=== PATIENT | male | born 1970 ===

== ENCOUNTER 2016-06-04 12:29 | Inpatient (IN) | payer OTHER ==
[2016-06-04 12:37] VITALS: BMI 25.8
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
[2016-06-04 13:59] LABS: ADD MANUAL DIFF? NO
[2016-06-04 14:10] LABS: BASO # 0.06 K/mm3 (0.0-2.0); BASO % 0.8 % (0.0-3.0); EOS # 0.2 (0.0-0.7); EOS % 2.4 % (1.5-5.0); GRAN # 4.07 (1.4-6.5); GRAN % 55.1 % (50.0-68.0); HEMATOCRIT 38.9 % (42.0-52.0); LYMPH # 2.3 (1.2-3.4); LYMPH % 30.7 % (22.0-35.0); MEAN CELL VOLUME 86.6 fL (80.0-105.0); MEAN CORPUSCULAR HEMOGLOBIN 28.5 pg (25.0-35.0); MEAN CORPUSCULAR HGB CONC 32.9 g/dl (31.0-37.0); MEAN PLATELET VOLUME 11.5 fl (7.0-11.0); MONO # 0.8 (0.1-0.6); PLATELET COUNT 299 10^3/uL (120.0-450.0); RED CELL DISTRIBUTION WIDTH 14.7 % (11.5-14.5); WHITE BLOOD COUNT 7.4 10^3/ul (4.5-11.0)
[2016-06-04 14:19] LABS: ALB/GLOB RATIO 1.1 (1.1-1.8); ALKALINE PHOSPHATASE 161 U/L (38-133); ALT/SGPT 30 U/L (7-56); AST/SGOT 28 U/L (15-59); BILIRUBIN,TOTAL 0.5 mg/dL (0.2-1.3); BLOOD UREA NITROGEN 9 mg/dL (7-21); CALCIUM 8.7 mg/dL (8.4-10.5); CARBON DIOXIDE 29 mmol/L (21-33); CHLORIDE 102 mmol/L (98-107); CHOLESTEROL 147 mg/dL (130-200); GFR AFRICAN-AMERICAN > 60; GLUCOSE,RANDOM 78 mg/dL (70-110); POTASSIUM 3.5 mmol/L (3.6-5.0); SODIUM 140 mmol/L (132-148); TOTAL PROTEIN 7.6 g/dL (5.8-8.3)
[2016-06-04 14:20] LABS: INR 1.02 (0.93-1.08); PARTIAL THROMBOPLASTIN TIME 30.1 Seconds (23.7-30.8)
[2016-06-04 14:31] LABS: TROPONIN I < 0.01 ng/mL
--- NOTE | 2016-06-04 14:42 | CT ---
PROCEDURE: CT HEAD WITHOUT CONTRAST. HISTORY: left sided weakness, facial droop COMPARISON: 03/29/2015 TECHNIQUE: Axial computed tomography images were obtained through the head/brain without intravenous contrast. Radiation dose: Total exam DLP = 688 mGy-cm. This CT exam was performed using one or more of the following dose reduction techniques: Automated exposure control, adjustment of the mA and/or kV according to patient size, and/or use of iterative reconstruction technique. FINDINGS: HEMORRHAGE: There is an 11 mm acute hemorrhage in the right basal ganglia adjacent to the posterior limb of the internal capsule. There is minimal surrounding edema. BRAIN: No mass effect or edema. No atrophy or chronic microvascular ischemic changes. VENTRICLES: Unremarkable. No hydrocephalus. CALVARIUM: Unremarkable. PARANASAL SINUSES: Unremarkable as visualized. No significant inflammatory changes. MASTOID AIR CELLS: Unremarkable as visualized. No inflammatory changes. OTHER FINDINGS: The findings were discussed with Dr. Interiano at 2:40 p.m. IMPRESSION: There is an 11 mm acute hemorrhage in the right basal ganglia adjacent to the posterior limb of the internal capsule. There is minimal surrounding edema.
--- NOTE | 2016-06-04 14:52 | RAD ---
HISTORY: cva COMPARISON: 03/29/2015 FINDINGS: LUNGS: No active pulmonary disease. PLEURA: No significant pleural effusion identified, no pneumothorax apparent. CARDIOVASCULAR: Normal. OSSEOUS STRUCTURES: No significant abnormalities. VISUALIZED UPPER ABDOMEN: Normal. OTHER FINDINGS: None. IMPRESSION: No active disease.
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
[2016-06-04] MEDS ORDERED: Labetalol 5 mg/ml Inj 20ML IV STA ×2 (16:44→16:53)
[2016-06-04] MEDS ORDERED: Labetalol 5 mg/ml Inj 20ML ONE (16:46)
--- NOTE | 2016-06-04 17:19 | MRI ---
PROCEDURE: MRI BRAIN WITHOUT CONTRAST HISTORY: brain hemorrhage COMPARISON: Comparison is made to the previous CT study dated 03/29/2015 and 06/04/2016 TECHNIQUE: Multiplanar, multisequence MR images of the brain were obtained without intravenous contrast enhancement. FINDINGS: HEMORRHAGE: There is focal hemorrhage versus hemorrhagic lesion at the right basal ganglia adjacent to the posterior element of the internal capsule again seen measures 15 x 14 millimeter. These focal hemorrhagic demonstrate hypointense T2 and Iso to slightly hyperintense T1 signal suggestive of acute/early subacute hemorrhage. The differential diagnosis includes hemorrhagic lesion. DWI: No evidence of an acute or early subacute infarction. BRAIN PARENCHYMA: Cmet-lw-hoiubawb edema surrounding the focal hemorrhage at the right basal ganglia noted. No evidence of significant mass effect. No atrophy or chronic microvascular ischemic changes. VENTRICLES: Unremarkable. No hydrocephalus. CRANIUM: Unremarkable. ORBITS: Grossly unremarkable. PARANASAL SINUSES/MASTOIDS: Clear VASCULAR SYSTEM: Skull base flow voids intact. OTHER FINDINGS: None. IMPRESSION: Acute/ early subacute intraparenchymal hemorrhage versus hemorrhagic lesion seen at the right basal ganglia surrounding with fjqu-yj-nrzflxrs edema. No evidence of other acute pathology or other hemorrhagic lesion in the brain. Follow-up reassessment after 4 weeks with MRI is suggested.
--- NOTE | 2016-06-04 17:34 | CON ---
DATE: 06/04/2016 HISTORY OF PRESENT ILLNESS: This is a 45-year-old male with past medical history of hyperte nsion who came to the Emergency Room with left-sided weakness, left facial droop and some dysarthria . 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 Yesterday became a littl e bit more weak and called to evaluate the patient. CAT scan of the head was done. CAT scan showed 11 mm acute hemorrhage in the right basal ganglia adjacent to the posterior limb of the internal caps ule. PAST MEDICAL HISTORY: Hypertension. SOCIAL HISTORY: Lives with and children. Does not drink and smokes 1 pack per day for many, man y years. REVIEW OF SYSTEMS: A 10-point review of system was negative except for numbness of the left hand and weakness. PHYSICAL EXAMINATION: HEENT: Normocephalic, atraumatic. NECK: Supple. NEUROLOGIC: Alert, awake, oriented x 3. No aphasia. Cranial nerves II-XII were tested. Pupils lexi ctive. EOM intact. Motor examination: Moves all the extremities spontaneously. Deep tendon reflex es 1+. Both plantars are downgoing. Sensory appears intact. Cerebellar: Gait deferred. VITAL SIGNS: Blood pressure 165/114. IMPRESSION: Right basal ganglia bleed and hypertension uncontrolled and workup in progress. We will follow. Neurosurgery consult was called and ordered the MRI of the head. We will follow up. Cy Terrazas MD cc: [id number] TT: 06/04/2016 17:34:07 Confirmation # [id number] Dictation # [id number] ln
--- NOTE | 2016-06-04 17:46 | CARD ---
APPROVED REPORT EKG Measurement Heart [id number] <Conclusion> Normal sinus rhythm with sinus arrhythmia Moderate voltage criteria for LVH, may be normal variant Borderline ECG
--- NOTE | 2016-06-04 18:42 | MRI ---
PROCEDURE: Magnetic Resonance Angiography Brain HISTORY: brain hemorrhage COMPARISON: None available. TECHNIQUE: 3D time of flight MR angiography of the intracranial arteries was performed. Rotating maximum intensity projection images were generated. FINDINGS: INTERNAL CEREBRAL ARTERIES: Unremarkable. The skull base, petrous, cavernous and supraclinoid segments are bilaterally widely patient. ANTERIOR CEREBRAL ARTERIES: Unremarkable. A1 and A2 segments are widely patent. Smaller distal branches unremarkable, as visualized. MIDDLE CEREBRAL ARTERIES: Unremarkable. M1 and M2 segments are widely patent. Perisylvian branches grossly symmetric. POSTERIOR CIRCULATION: Basilar Artery: Unremarkable. Distal Vertebral Arteries: Unremarkable. Posterior Cerebral Arteries: Unremarkable. Posterior Inferior Cerebellar Arteries: Unremarkable. ANEURYSM/ VASCULAR MALFORMATIONS: None. OTHER FINDINGS: None. IMPRESSION: Unremarkable MR angiography of the brain.
[2016-06-04] MEDS ORDERED: Oxycodone/Acetaminophen 10/325 mg Tab PO PRN (18:45)
[2016-06-04] MEDS ORDERED: Labetalol 5 mg/ml Inj 20ML IV PRN (18:47)
[2016-06-04] MEDS ORDERED: Pneumococcal 23-Valent Vaccine IM ONE (23:32)
[2016-06-05 06:17] LABS: ADD MANUAL DIFF? NO
[2016-06-05 06:27] LABS: BASO # 0.09 K/mm3 (0.0-2.0); BASO % 1.3 % (0.0-3.0); EOS # 0.2 (0.0-0.7); EOS % 3.3 % (1.5-5.0); GRAN # 3.35 (1.4-6.5); GRAN % 47.4 % (50.0-68.0); HEMATOCRIT 38.7 % (42.0-52.0); LYMPH # 2.6 (1.2-3.4); LYMPH % 36.7 % (22.0-35.0); MEAN CORPUSCULAR HEMOGLOBIN 28.4 pg (25.0-35.0); MEAN CORPUSCULAR HGB CONC 33.1 g/dl (31.0-37.0); MEAN PLATELET VOLUME 11.3 fl (7.0-11.0); MONO # 0.8 (0.1-0.6); MONO % 11.3 % (1.0-6.0); PLATELET COUNT 307 10^3/uL (120.0-450.0); RED CELL DISTRIBUTION WIDTH 14.9 % (11.5-14.5); WHITE BLOOD COUNT 7.1 10^3/ul (4.5-11.0)
[2016-06-05 06:39] LABS: BLOOD UREA NITROGEN 8 mg/dL (7-21); CALCIUM 8.1 mg/dL (8.4-10.5); CARBON DIOXIDE 28 mmol/L (21-33); CHLORIDE 105 mmol/L (98-107); GFR AFRICAN-AMERICAN > 60; GLUCOSE,RANDOM 110 mg/dL (70-110); POTASSIUM 3.2 mmol/L (3.6-5.0); SODIUM 141 mmol/L (132-148)
[2016-06-05] MEDS ORDERED: Potassium Chloride 20 mEq ER Tab PO STA (07:32)
--- NOTE | 2016-06-05 13:46 | CP.CCUPN ---
<Sree Jeffries - Last Filed: 06/05/16 13:51> CCU Subjective - Physician Review Subjective (Free Text): Pt seen and examined at bedside. No acute events overnight. Pt states he has no new complaints at this time. Pt admits to having mild numbness in his left head , but the rest of his symptoms from previous day have resolved. Pt is tolerating diet with no complications. Pt is having BM's. Denies CP, SOB, N/V/D , fevers, chills. CCU Objective - Vital Signs / Intake & Output Vital Signs (Last 4 hours): Vital Signs Temp Pulse Resp BP Pulse Ox 06/05/16 12:55 60 14 96 06/05/16 12:04 50 H 06/05/16 12:03 138/85 06/05/16 12:00 98.7 F 06/05/16 11:56 63 06/05/16 11:55 63 20 139/87 96 06/05/16 11:00 58 L 15 119/70 96 06/05/16 10:00 61 14 122/83 95 Intake and Output (Last 8hrs): Intake & Output 06/04/16 06/05/16 06/05/16 22:59 06:59 14:59 Intake Total 360 Output Total 300 900 Balance 60 -900 Weight 170 lb Intake: Oral 360 Output: Urine 300 900 Urine, Voided 300 900 Other: Voiding Method Urinal Urinal Urinal # Voids Urine, Voided 3 # Bowel Movements 0 - Physical Exam Head: Positive for: Atraumatic, Normocephalic Pupils: Positive for: PERRL Extroacular Muscles: Positive for: EOMI Conjunctiva: Positive for: Normal Mouth: Positive for: Moist Mucous Membranes Neck: Positive for: Normal Range of Motion Respiratory/Chest: Positive for: Clear to Auscultation, Good Air Exchange. Negative for: Respiratory Distress, Accessory Muscle Use, Wheezes Cardiovascular: Positive for: Regular Rate and Rhythm, Normal S1, S2, Peripheal Pulses Present. Negative for: Murmurs Abdomen: Positive for: Normal Bowel Sounds. Negative for: Tenderness, Distention, Peritoneal Signs Back: Positive for: Normal Inspection Upper Extremity: Positive for: Normal Inspection, NORMAL PULSES. Negative for: Cyanosis, Edema Lower Extremity: Positive for: Normal Inspection, NORMAL PULSES. Negative for: Edema Neurological: Positive for: GCS=15, Speech Normal, Normal Sensory Function, Memory Normal, Other (upper extremity strength 5/5 bilaterally) Skin: Positive for: Warm, Dry, Normal Color. Negative for: Rashes Psychiatric: Positive for: Alert, Oriented x 3, Normal Insight, Normal Concentration - Medications Active Medications: Active Medications Generic Name Dose Route Start Last Admin Trade Name Freq PRN Reason Stop Dose Admin Clonidine HCl 0.1 mg 06/05/16 10:00 06/05/16 09:01 Catapres PO 0.1 mg TID ELMIRA Administration Labetalol HCl 10 mg 06/04/16 18:47 Trandate IV Q1 PRN SBP>180 Metoprolol Tartrate 100 mg 06/04/16 18:45 06/05/16 09:00 Lopressor PO 100 mg BID ELMIRA Administration Oxycodone/Acetaminophen 1 tab 06/04/16 18:45 06/05/16 03:22 Percocet 10/325 Mg Tab PO 1 tab Q4H PRN Administration Pain, moderate (4-7) Pantoprazole Sodium 40 mg 06/05/16 10:00 06/05/16 09:01 Protonix Inj IVP 40 mg DAILY EL[place]IRA Administration - Patient Studies Lab Studies: Lab Studies 06/05/16 06/05/16 06/04/16 Range/Units 07:27 05:45 22:03 WBC 7.1 (4.5-11.0) 10^3/ul RBC 4.50 (3.5-6.1) 10^6/uL Hgb 12.8 L (14.0-18.0) gm/dL Hct 38.7 L (42.0-52.0) % MCV 86.0 (80.0-105.0) fL MCH 28.4 (25.0-35.0) pg MCHC 33.1 (31.0-37.0) g/dl RDW 14.9 H (11.5-14.5) % Plt Count 307 (120.0-450.0) 10^3/uL MPV 11.3 H (7.0-11.0) fl Gran % 47.4 L (50.0-68.0) % Lymph % (Auto) 36.7 H (22.0-35.0) % Garrard % (Auto) 11.3 H (1.0-6.0) % Eos % (Auto) 3.3 (1.5-5.0) % Baso % (Auto) 1.3 (0.0-3.0) % Gran # 3.35 (1.4-6.5) Lymph # 2.6 (1.2-3.4) Garrard # 0.8 H (0.1-0.6) Eos # 0.2 (0.0-0.7) Baso # 0.09 (0.0-2.0) K/mm3 Sodium 141 (132-148) mmol/L Potassium 3.2 L (3.6-5.0) mmol/L Chloride 105 (98-107) mmol/L Carbon Dioxide 28 (21-33) mmol/L Anion Gap 11 (10-20) BUN 8 (7-21) mg/dL Creatinine 1.1 (0.5-1.4) mg/dL Est GFR ( Amer) > 60 Est GFR (Non-Af Amer) > 60 POC Glucose (mg/dL) 113 H 132 H (65-110) mg/dL Random Glucose 110 (70-110) mg/dL Calcium 8.1 L (8.4-10.5) mg/dL 06/04/16 Range/Units 18:31 WBC (4.5-11.0) 10^3/ul RBC (3.5-6.1) 10^6/uL Hgb (14.0-18.0) gm/dL Hct (42.0-52.0) % MCV (80.0-105.0) fL MCH (25.0-35.0) pg MCHC (31.0-37.0) g/dl RDW (11.5-14.5) % Plt Count (120.0-450.0) 10^3/uL MPV (7.0-11.0) fl Gran % (50.0-68.0) % Lymph % (Auto) (22.0-35.0) % Garrard % (Auto) (1.0-6.0) % Eos % (Auto) (1.5-5.0) % Baso % (Auto) (0.0-3.0) % Gran # (1.4-6.5) Lymph # (1.2-3.4) Garrard # (0.1-0.6) Eos # (0.0-0.7) Baso # (0.0-2.0) K/mm3 Sodium (132-148) mmol/L Potassium (3.6-5.0) mmol/L Chloride (98-107) mmol/L Carbon Dioxide (21-33) mmol/L Anion Gap (10-20) BUN (7-21) mg/dL Creatinine (0.5-1.4) mg/dL Est GFR ( Amer) Est GFR (Non-Af Amer) POC Glucose (mg/dL) 93 (65-110) mg/dL Random Glucose (70-110) mg/dL Calcium (8.4-10.5) mg/dL Laboratory Results - last 24 hr 06/04/16 06/04/16 06/05/16 18:31 22:03 05:45 WBC 7.1 RBC 4.50 Hgb 12.8 L Hct 38.7 L MCV 86.0 MCH 28.4 MCHC 33.1 RDW 14.9 H Plt Count 307 MPV 11.3 H Gran % 47.4 L Lymph % (Auto) 36.7 H Garrard % (Auto) 11.3 H Eos % (Auto) 3.3 Baso % (Auto) 1.3 Gran # 3.35 Lymph # 2.6 Garrard # 0.8 H Eos # 0.2 Baso # 0.09 Sodium 141 Potassium 3.2 L Chloride 105 Carbon Dioxide 28 Anion Gap 11 BUN 8 Creatinine 1.1 Est GFR ( Amer) > 60 Est GFR (Non-Af Amer) > 60 POC Glucose (mg/dL) 93 132 H Random Glucose 110 Calcium 8.1 L 06/05/16 07:27 WBC RBC Hgb Hct MCV MCH MCHC RDW Plt Count MPV Gran % Lymph % (Auto) Garrard % (Auto) Eos % (Auto) Baso % (Auto) Gran # Lymph # Garrard # Eos # Baso # Sodium Potassium Chloride Carbon Dioxide Anion Gap BUN Creatinine Est GFR ( Amer) Est GFR (Non-Af Amer) POC Glucose (mg/dL) 113 H Random Glucose Calcium Fingerstick Blood Sugar Results: 87 Critical Care Progress Note - Nutrition Nutrition: Nutrition Category Date Time Status Heart Healthy Diet [DIET] Diets 06/04/16 Dinner Ordered Assessment/Plan - Assessment and Plan (Free Text) Plan: 45 y/ M with PMH of HTN presents with intracranial hemorrhage in the right basal ganglia. Pt is stable today and will undergo repeat head CT and CT angiography of the brain to further assess hemorrhage. Will continue to monitor. Pt may be transferred out to medical floors is bleed is unchanged. Neuro AAOx3 No surgery intervention as per neurosurgery Repeat Head CT today Brain MRI should be repeated in [address] Head with angiography ordered Neurochecks q1h, may change pending repeat scan results Cardio Goal SBP <160 Labetalol, clonidine, and metoprolol for BP control Maintain hemodynamic instability MAP >65 Pulm Maintain O2 sat> 95% Monitor for distress GI Heart Healthy diet Protonix for prophylaxis Endo Maintain eugylcemia Nephro Maintain euvolemia Replenish electrolytes as needed Heme Aferile, no leukocytosis Prophylaxis scds due to intracranial hemorrhaged. protonix Seen, reviewed, and discussed with attending Nesha, PGY-1 <Sally KATE,Berta H - Last Filed: 06/05/16 14:47> CCU Objective - Vital Signs / Intake & Output Vital Signs (Last 4 hours): Vital Signs Temp Pulse Resp BP Pulse Ox 06/05/16 13:56 65 103/64 06/05/16 12:55 60 14 96 06/05/16 12:04 50 H 06/05/16 12:03 138/85 06/05/16 12:00 98.7 F 06/05/16 11:56 63 06/05/16 11:55 63 20 139/87 96 06/05/16 11:00 58 L 15 119/70 96 Intake and Output (Last 8hrs): Intake & Output 06/04/16 06/05/16 06/05/16 22:59 06:59 14:59 Intake Total 360 Output Total 300 900 Balance 60 -900 Weight 170 lb Intake: Oral 360 Output: Urine 300 900 Urine, Voided 300 900 Other: Voiding Method Urinal Urinal Urinal # Voids Urine, Voided 3 # Bowel Movements 0 - Medications Active Medications: Active Medications Generic Name Dose Route Start Last Admin Trade Name Freq PRN Reason Stop Dose Admin Clonidine HCl 0.1 mg 06/05/16 10:00 06/05/16 13:56 Catapres PO 0.1 mg TID ELMIRA Administration Labetalol HCl 10 mg 06/04/16 18:47 Trandate IV Q1 PRN SBP>180 Metoprolol Tartrate 100 mg 06/04/16 18:45 06/05/16 09:00 Lopressor PO 100 mg BID [place] Administration Oxycodone/Acetaminophen 1 tab 06/04/16 18:45 06/05/16 03:22 Percocet 10/325 Mg Tab PO 1 tab Q4H PRN Administration Pain, moderate (4-7) Pantoprazole Sodium 40 mg 06/05/16 10:00 06/05/16 09:01 Protonix Inj IVP 40 mg DAILY [place] Administration - Patient Studies Lab Studies: Lab Studies 06/05/16 06/05/16 06/04/16 Range/Units 07:27 05:45 22:03 WBC 7.1 (4.5-11.0) 10^3/ul RBC 4.50 (3.5-6.1) 10^6/uL Hgb 12.8 L (14.0-18.0) gm/dL Hct 38.7 L (42.0-52.0) % MCV 86.0 (80.0-105.0) fL MCH 28.4 (25.0-35.0) pg MCHC 33.1 (31.0-37.0) g/dl RDW 14.9 H (11.5-14.5) % Plt Count 307 (120.0-450.0) 10^3/uL MPV 11.3 H (7.0-11.0) fl Gran % 47.4 L (50.0-68.0) % Lymph % (Auto) 36.7 H (22.0-35.0) % Garrard % (Auto) 11.3 H (1.0-6.0) % Eos % (Auto) 3.3 (1.5-5.0) % Baso % (Auto) 1.3 (0.0-3.0) % Gran # 3.35 (1.4-6.5) Lymph # 2.6 (1.2-3.4) Garrard # 0.8 H (0.1-0.6) Eos # 0.2 (0.0-0.7) Baso # 0.09 (0.0-2.0) K/mm3 Sodium 141 (132-148) mmol/L Potassium 3.2 L (3.6-5.0) mmol/L Chloride 105 (98-107) mmol/L Carbon Dioxide 28 (21-33) mmol/L Anion Gap 11 (10-20) BUN 8 (7-21) mg/dL Creatinine 1.1 (0.5-1.4) mg/dL Est GFR ( Amer) > 60 Est GFR (Non-Af Amer) > 60 POC Glucose (mg/dL) 113 H 132 H (65-110) mg/dL Random Glucose 110 (70-110) mg/dL Calcium 8.1 L (8.4-10.5) mg/dL 06/04/16 Range/Units 18:31 WBC (4.5-11.0) 10^3/ul RBC (3.5-6.1) 10^6/uL Hgb (14.0-18.0) gm/dL Hct (42.0-52.0) % MCV (80.0-105.0) fL MCH (25.0-35.0) pg MCHC (31.0-37.0) g/dl RDW (11.5-14.5) % Plt Count (120.0-450.0) 10^3/uL MPV (7.0-11.0) fl Gran % (50.0-68.0) % Lymph % (Auto) (22.0-35.0) % Garrard % (Auto) (1.0-6.0) % Eos % (Auto) (1.5-5.0) % Baso % (Auto) (0.0-3.0) % Gran # (1.4-6.5) Lymph # (1.2-3.4) Garrard # (0.1-0.6) Eos # (0.0-0.7) Baso # (0.0-2.0) K/mm3 Sodium (132-148) mmol/L Potassium (3.6-5.0) mmol/L Chloride (98-107) mmol/L Carbon Dioxide (21-33) mmol/L Anion Gap (10-20) BUN (7-21) mg/dL Creatinine (0.5-1.4) mg/dL Est GFR ( Amer) Est GFR (Non-Af Amer) POC Glucose (mg/dL) 93 (65-110) mg/dL Random Glucose (70-110) mg/dL Calcium (8.4-10.5) mg/dL Laboratory Results - last 24 hr 06/04/16 06/04/16 06/05/16 18:31 22:03 05:45 WBC 7.1 RBC 4.50 Hgb 12.8 L Hct 38.7 L MCV 86.0 MCH 28.4 MCHC 33.1 RDW 14.9 H Plt Count 307 MPV 11.3 H Gran % 47.4 L Lymph % (Auto) 36.7 H Garrard % (Auto) 11.3 H Eos % (Auto) 3.3 Baso % (Auto) 1.3 Gran # 3.35 Lymph # 2.6 Garrard # 0.8 H Eos # 0.2 Baso # 0.09 Sodium 141 Potassium 3.2 L Chloride 105 Carbon Dioxide 28 Anion Gap 11 BUN 8 Creatinine 1.1 Est GFR ( Amer) > 60 Est GFR (Non-Af Amer) > 60 POC Glucose (mg/dL) 93 132 H Random Glucose 110 Calcium 8.1 L 06/05/16 07:27 WBC RBC Hgb Hct MCV MCH MCHC RDW Plt Count MPV Gran % Lymph % (Auto) Garrard % (Auto) Eos % (Auto) Baso % (Auto) Gran # Lymph # Garrard # Eos # Baso # Sodium Potassium Chloride Carbon Dioxide Anion Gap BUN Creatinine Est GFR ( Amer) Est GFR (Non-Af Amer) POC Glucose (mg/dL) 113 H Random Glucose Calcium Critical Care Progress Note - Nutrition Nutrition: Nutrition Category Date Time Status Heart Healthy Diet [DIET] Diets 06/04/16 Dinner Ordered Attending/Attestation - Attestation I have personally seen and examined this patient.: Yes I have fully participated in the care of the patient.: Yes I have reviewed all pertinent clinical information: Yes Notes (Text): 06/05/16 14:46 45 y/o M w/ ICH IC/ Basal ganglia NSG aware no intervention planned. No new acute neurological events overnight BP control w/ labetalol PRN for SBP> 18. Can start P.O medications. Diet resumed and advanced. PT/OT needed. Neurology follow up and need for repeat Head CT. SCD dvt p cc time 45 min
[2016-06-05] MEDS ORDERED: Iodixanol 320 MG/ML 100 ML BOTTLE IV ONE (14:07)
--- NOTE | 2016-06-05 15:28 | CT ---
PROCEDURE: CT HEAD WITHOUT CONTRAST. HISTORY: compare bleed size COMPARISON: 06/04/2016 TECHNIQUE: Axial computed tomography images were obtained through the head/brain without intravenous contrast. Radiation dose: Total exam DLP = 744.88 mGy-cm. This CT exam was performed using one or more of the following dose reduction techniques: Automated exposure control, adjustment of the mA and/or kV according to patient size, and/or use of iterative reconstruction technique. FINDINGS: HEMORRHAGE: Since the prior examination, there has been no significant interval change in the known 11 x 13 mm acute hematoma in the right posterior basal ganglia. There is mild surrounding vasogenic edema without evidence of mass effect or midline shift. BRAIN: There is no intracranial mass or extra-axial fluid collection. There is normal density in the larger dural venous sinuses. VENTRICLES: The ventricles are normal in size, shape and configuration. CALVARIUM: The skull base and calvarium are normal. There is an old deformity in the right lamina papyracea. PARANASAL SINUSES: Predominantly clear. MASTOID AIR CELLS: Predominantly clear. OTHER FINDINGS: None. IMPRESSION: Little interval change in the known 11 x 13 mm right posterior basal ganglia acute hematoma with mild surrounding vasogenic edema. The location of the hematoma is in favor of hypertensive etiology.
--- NOTE | 2016-06-05 15:50 | CT ---
PROCEDURE: CT Angiography of the Brain. HISTORY: Right basal ganglia hemorrhage COMPARISON: None available. TECHNIQUE: CT angiography of the intracranial arteries was performed. Coronal and sagittal maximum intensity projection reformated images were generated. This CT exam was performed using one or more of the following dose reduction techniques: Automated exposure control, adjustment of the mA and/or kV according to patient size, and/or use of iterative reconstruction technique. FINDINGS: INTERNAL CEREBRAL ARTERIES: Normal in caliber. The skull base, petrous, cavernous and supraclinoid segments are bilaterally widely patient. ANTERIOR CEREBRAL ARTERIES: Normal in caliber. A1 and A2 segments are widely patent. Smaller distal branches unremarkable, as visualized. MIDDLE CEREBRAL ARTERIES: Normal in caliber e. M1 and M2 segments are widely patent. Perisylvian branches grossly symmetric. POSTERIOR CIRCULATION: Basilar Artery: Normal Distal Vertebral Arteries: Normal Posterior Cerebral Arteries: Normal Posterior Inferior Cerebellar Arteries: Normal ANEURYSM/ VASCULAR MALFORMATIONS: None. OTHER FINDINGS: None. IMPRESSION: Normal CT Angiography of the Brain.
[2016-06-06] MEDS: Pantoprazole 40 mg EC Tab PO SCH (08:00)
[2016-06-06 10:17] LABS: BLOOD UREA NITROGEN 13 mg/dL (7-21); CALCIUM 8.7 mg/dL (8.4-10.5); CARBON DIOXIDE 28 mmol/L (21-33); CHLORIDE 104 mmol/L (95-110); GFR AFRICAN-AMERICAN > 60; GLUCOSE,RANDOM 91 mg/dL (70-110); MAGNESIUM 2.1 mg/dL (1.7-2.2); POTASSIUM 3.8 mmol/L (3.6-5.0); SODIUM 142 mmol/L (132-148)
--- NOTE | 2016-06-06 22:22 | PN ---
DATE: 06/06/2016 The patient was seen this Thursday morning in coronary care unit bed 4, sitting out of bed in a chair, awake, alert, clear, and in good spirits. His speech is clear and fluent. He is moving his upper ex tremities rather well. Hand grasp is good, slightly weaker on the left. Arm strength and hand rotat ion and arm drift is almost near normal, showing only very mild neurologic deficit. The patient has been ambulatory in the room and feels good on his feet. PHYSICAL EXAMINATION: LUNGS: Clear. HEART: Regular, not tachycardic. VITAL SIGNS: Blood pressure is rather well controlled on his current medication regimen. IMPRESSION: 1. Acute hemorrhagic stroke while lifting weights at the local gym. 2. Hypertension. 3. Chronic back pain. PLAN: We will transfer out of ICU today. Engage in physical therapy. Ambulate on the floor and fur ther plans regarding rehabilitation to be determined based on his progress and extent of his neurolog ic deficit if any. Leland Herrera MD cc: [phone] TT: 06/06/2016 22:21:33 Confirmation # [id number] Dictation # [id number] kailey
--- NOTE | 2016-06-06 23:17 | PN ---
DATE: 06/05/2016 This is a 45-year-old man seen and admitted by Dr. Anup Herrera yesterday when he presented to the Em ergency Room with 2 or 3 days of worsening neurologic symptoms, onset while weightlifting at a local gym and progressing to the point of weakness and unable to walk, at which point he knew something was wrong and he and he needed to come in. CT from the Emergency Room showed a hemorrhagic infarct. He was admitted to ICU. Neurology and neurosurgery consultations were called. There is no need for deepali gical intervention, needs to be treated conservatively and has been doing amazingly well. Today, this evening, he is seen in coronary care unit bed 4, sitting in bed, comfortable, awake, alert, in no acute distress. His speech is clear and normal. There is some left hand weakness, although h and . Rotation of the hand is good and there is minimal appreciated arm drift. I spoke with the patient at length regarding his hypertension and the need to get his hypertension under better contr ol. I also counseled him regarding his chronic back pain and prescription opiate use. He seems to u nderstand the importance of both. I explained to him our plan would be for him to get out of intensi ve care tomorrow and undergo physical therapy and the plan after that will depend on the extent of th e neurologic deficit. If neurologic deficit is significant, he may require additional acute physical therapy. If he is doing very well, we will follow closely and monitor our plan accordingly. Leland Herrera MD cc: [phone] TT: 06/06/2016 23:17:30 Confirmation # [id number] Dictation # [id number] ln
[2016-06-07 06:35] VITALS: O2SAT 99
[2016-06-07] MEDS: Pantoprazole 40 mg EC Tab PO SCH (08:23)
[2016-06-07 12:07] VITALS: RESP 21; TEMP 97.4
[2016-06-07 14:11] VITALS: BP 137/92; PULSE 60
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
== END 2016-06-07 16:37 | disposition home or self-care (01) | DRG 810 ==
LOC: ED 12:29 → ERH 16:04 → CCU 17:12 → 2RNO 06-06 21:11
PROVIDERS: ADMIT Internal Medicine; ATTEND Internal Medicine
DX: I61.0 Nontraumatic intracerebral hemorrhage in hemisphere, subcortical (principal); G93.6 Cerebral edema; I10 Essential (primary) hypertension; F17.210 Nicotine dependence, cigarettes, uncomplicated; R40.2412 Glasgow coma scale score 13-15, at arrival to emergency department; M54.9 Dorsalgia, unspecified; G89.29 Other chronic pain; Z82.3 Family history of stroke

== ENCOUNTER 2016-08-13 10:37 | Emergency (ER) | payer OTHER ==
[2016-08-13 10:40] VITALS: BMI 26.1
[2016-08-13 10:46] VITALS: TEMP 98.1; O2SAT 99
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
[2016-08-13 11:32] LABS: ADD MANUAL DIFF? NO
[2016-08-13 11:37] LABS: BASO # 0.05 K/mm3 (0.0-2.0); EOS # 0.1 (0.0-0.7); EOS % 2.7 % (1.5-5.0); GRAN # 2.37 (1.4-6.5); LYMPH # 2.1 (1.2-3.4); LYMPH % 40.8 % (22.0-35.0); MEAN CELL VOLUME 86.8 fL (80.0-105.0); MEAN CORPUSCULAR HEMOGLOBIN 28.6 pg (25.0-35.0); MONO # 0.6 (0.1-0.6); MONO % 10.5 % (1.0-6.0); PLATELET COUNT 283 10^3/uL (120.0-450.0); RED CELL DISTRIBUTION WIDTH 14.6 % (11.5-14.5); WHITE BLOOD COUNT 5.3 10^3/ul (4.5-11.0)
[2016-08-13 11:45] LABS: ALB/GLOB RATIO 1.3 (1.1-1.8); ALKALINE PHOSPHATASE 163 U/L (38-133); ALT/SGPT 18 U/L (7-56); AST/SGOT 22 U/L (15-59); BILIRUBIN,TOTAL 0.5 mg/dL (0.2-1.3); BLOOD UREA NITROGEN 9 mg/dL (7-21); CARBON DIOXIDE 29 mmol/L (21-33); CHLORIDE 104 mmol/L (98-107); GFR AFRICAN-AMERICAN > 60; GLUCOSE,RANDOM 81 mg/dL (70-110); MAGNESIUM 2.3 mg/dL (1.7-2.2); POTASSIUM 3.9 mmol/L (3.6-5.0); SODIUM 141 mmol/L (132-148); TOTAL PROTEIN 7.2 g/dL (5.8-8.3)
[2016-08-13 11:52] LABS: INR 1.04 (0.93-1.08); PARTIAL THROMBOPLASTIN TIME 27.9 Seconds (23.7-30.8)
[2016-08-13 11:59] LABS: TROPONIN I < 0.01 ng/mL
--- NOTE | 2016-08-13 12:23 | CT ---
PROCEDURE: CT HEAD WITHOUT CONTRAST. HISTORY: weakness COMPARISON: None available. TECHNIQUE: Axial computed tomography images were obtained through the head/brain without intravenous contrast. Radiation dose: Total exam DLP = 677 mGy-cm. This CT exam was performed using one or more of the following dose reduction techniques: Automated exposure control, adjustment of the mA and/or kV according to patient size, and/or use of iterative reconstruction technique. FINDINGS: HEMORRHAGE: No intracranial hemorrhage. BRAIN: No mass effect or edema. No atrophy or chronic microvascular ischemic changes. VENTRICLES: Unremarkable. No hydrocephalus. CALVARIUM: Unremarkable. PARANASAL SINUSES: Unremarkable as visualized. No significant inflammatory changes. MASTOID AIR CELLS: Unremarkable as visualized. No inflammatory changes. OTHER FINDINGS: None. IMPRESSION: Normal CT of the Head.
[2016-08-13 13:15] VITALS: BP 137/80; PULSE 49; RESP 16
--- NOTE | 2016-08-13 13:16 | RAD ---
HISTORY: palpitations COMPARISON: 06/04/2016 FINDINGS: LUNGS: No active pulmonary disease. PLEURA: No significant pleural effusion identified, no pneumothorax apparent. CARDIOVASCULAR: Probable top-normal heart size OSSEOUS STRUCTURES: Mild left shoulder arthrosis VISUALIZED UPPER ABDOMEN: Normal. OTHER FINDINGS: None. IMPRESSION: No active disease.
--- NOTE | 2016-08-13 19:50 | CARD ---
APPROVED REPORT EKG Measurement Heart [id number] 142P35 [id number] <Conclusion> Marked sinus bradycardia Moderate voltage criteria for LVH, may be normal variant ST elevation, consider early repolarization, pericarditis, or injury Abnormal ECG
== END 2016-08-13 12:45 | disposition left against medical advice (07) ==
LOC: ED 10:37
DX: R00.1 Bradycardia, unspecified (principal); R53.1 Weakness; I10 Essential (primary) hypertension; F17.210 Nicotine dependence, cigarettes, uncomplicated

== ENCOUNTER 2016-11-22 01:27 | Emergency (ER) | payer OTHER ==
[2016-11-22 01:27] VITALS: BMI 26.1
[2016-11-22 01:43] VITALS: TEMP 98.5
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
[2016-11-22] MEDS ORDERED: Labetalol 5 mg/ml Inj 20ML IV STA (01:58)
[2016-11-22 02:20] LABS: BASO # 0.05 K/mm3 (0.0-2.0); BASO % 0.7 % (0.0-3.0); EOS # 0.2 (0.0-0.7); EOS % 3.3 % (1.5-5.0); GRAN # 2.82 (1.4-6.5); GRAN % 39.8 % (50.0-68.0); HEMATOCRIT 36.9 % (42.0-52.0); LYMPH # 3.2 (1.2-3.4); LYMPH % 44.7 % (22.0-35.0); MEAN CELL VOLUME 86.8 fl (80.0-105.0); MEAN CORPUSCULAR HEMOGLOBIN 28.9 pg (25.0-35.0); MEAN CORPUSCULAR HGB CONC 33.3 g/dl (31.0-37.0); MONO # 0.8 (0.1-0.6); MONO % 11.5 % (1.0-6.0); RED CELL DISTRIBUTION WIDTH 14.7 % (11.5-14.5); WHITE BLOOD COUNT 7.1 10^3/ul (4.5-11.0)
[2016-11-22 02:29] LABS: INR 0.95 (0.93-1.08); PARTIAL THROMBOPLASTIN TIME 27.8 Seconds (23.7-30.8)
[2016-11-22 02:31] LABS: ALB/GLOB RATIO 1.2 (1.1-1.8); ALKALINE PHOSPHATASE 133 U/L (38-126); ALT/SGPT 31 U/L (7-56); AST/SGOT 21 U/L (17-59); BILIRUBIN,TOTAL 0.3 mg/dL (0.2-1.3); BLOOD UREA NITROGEN 9 mg/dL (7-21); CARBON DIOXIDE 31 mmol/L (21-33); CHLORIDE 105 mmol/L (98-107); GFR AFRICAN-AMERICAN > 60; GLUCOSE,RANDOM 107 mg/dL (70-110); POTASSIUM 3.3 mmol/L (3.6-5.0); SODIUM 147 mmol/L (132-148); TOTAL PROTEIN 6.7 g/dL (5.8-8.3)
[2016-11-22 02:43] LABS: TROPONIN I 0.02 ng/mL
--- NOTE | 2016-11-22 04:06 | CT ---
EXAM: CT Head Without Intravenous Contrast CLINICAL HISTORY: 46 years old, male; Pain; Headache TECHNIQUE: Axial computed tomography images of the head/brain without intravenous contrast. All CT scans at this facility use one or more dose reduction techniques, viz.: automated exposure control; ma/kV adjustment per patient size (including targeted exams where dose is matched to indication; i.e. head); or iterative reconstruction technique. COMPARISON: CT - HEAD W/O CONTRAST 08/13/2016 12:03:46 PM FINDINGS: Brain: No intracranial hemorrhage. No mass. No definite edema. Ventricles: No hydrocephalus. Bones/joints: No acute fracture. Soft tissues: Unremarkable. Sinuses: No acute sinusitis. Mastoid air cells: No mastoid effusion. Orbits: Unremarkable as visualized. IMPRESSION: 1. No acute intracranial abnormality. Acute infarction may be CT occult within first 24 hours. If a focal deficit persists, consider followup CT or MRI for further evaluation.
[2016-11-22 04:35] VITALS: BP 137/93; PULSE 82; RESP 16; O2SAT 99
--- NOTE | 2016-11-22 23:03 | CARD ---
APPROVED REPORT EKG Measurement Heart [id number] VA 130P29 [id number] <Conclusion> Normal sinus rhythm with sinus arrhythmia Moderate voltage criteria for LVH, may be normal variant Nonspecific T wave abnormality Abnormal ECG
--- NOTE | 2016-11-23 17:05 | RAD ---
HISTORY: medical clearance COMPARISON: 08/13/2016 FINDINGS: LUNGS: No active pulmonary disease. PLEURA: No significant pleural effusion identified, no pneumothorax apparent. CARDIOVASCULAR: No radiographic findings to suggest acute or significant cardiovascular disease. OSSEOUS STRUCTURES: No significant abnormalities. VISUALIZED UPPER ABDOMEN: Normal. OTHER FINDINGS: None. IMPRESSION: No active disease. No significant interval change compared to the prior examination(s). Please note: No preliminary report/ innterpretation of this examination provided by emergency department personnel.
== END 2016-11-22 04:37 | disposition left against medical advice (07) ==
LOC: ED 01:27
DX: I10 Essential (primary) hypertension (principal); F17.210 Nicotine dependence, cigarettes, uncomplicated
CPT/HCPCS: 70450; 71010; 80053; 84484; 85025; 85610; 85730; 86850; 86900; 93005; 96374; 99284; J0360

== ENCOUNTER 2017-03-06 16:22 | Emergency (ER) | payer OTHER ==
[2017-03-06 16:28] VITALS: BMI 23.0
[2017-03-06 16:38] VITALS: TEMP 98
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
--- NOTE | 2017-03-06 17:12 | CT ---
PROCEDURE: CT HEAD WITHOUT CONTRAST. HISTORY: Code Stroke COMPARISON: 11/22/2016. CT head 06/04/2016 CT head documenting right basal ganglia and posterior limb of the internal capsule hemorrhagic infarct TECHNIQUE: Axial computed tomography images were obtained through the head/brain without intravenous contrast. Radiation dose: Total exam DLP = 937.72 mGy-cm. This CT exam was performed using one or more of the following dose reduction techniques: Automated exposure control, adjustment of the mA and/or kV according to patient size, and/or use of iterative reconstruction technique. FINDINGS: HEMORRHAGE: No intracranial hemorrhage. BRAIN: No mass effect or edema. Tiny encephalomalacia region at the site of previous hemorrhagic infarct best seen on axial series 4, image 43. VENTRICLES: Unremarkable. No hydrocephalus. CALVARIUM: Unremarkable. PARANASAL SINUSES: Unremarkable as visualized. No significant inflammatory changes. MASTOID AIR CELLS: Unremarkable as visualized. No inflammatory changes. OTHER FINDINGS: None. IMPRESSION: No acute intracranial abnormalities. No significant findings to account for the clinical presentation. Code stroke protocol: Study completed 16:59 Radiologist notified at 17:03 Results conveyed verbally at 17:08 Interpretation finalized and available for review 17:10
--- NOTE | 2017-03-06 17:21 | RAD ---
PROCEDURE: CHEST RADIOGRAPH, 1 VIEW HISTORY: 46yoM, left sided numbness COMPARISON: 11/22/2016 FINDINGS: LUNGS: Clear. PLEURA: No pneumothorax or pleural fluid seen. CARDIOVASCULAR: No radiographic findings to suggest acute or significant cardiovascular disease. OSSEOUS STRUCTURES: No significant abnormalities. VISUALIZED UPPER ABDOMEN: Normal. OTHER FINDINGS: None. IMPRESSION: No active disease. No acute/significant interval changes.
[2017-03-06 17:23] LABS: BASO # 0.12 K/mm3 (0.0-2.0); BASO % 1.3 % (0.0-3.0); EOS # 0.2 (0.0-0.7); EOS % 2.7 % (1.5-5.0); GRAN # 4.22 (1.4-6.5); HEMOGLOBIN 13.2 g/dL (14.0-18.0); LYMPH # 3.4 (1.2-3.4); LYMPH % 37.4 % (22.0-35.0); MEAN CELL VOLUME 85.7 fl (80.0-105.0); MEAN CORPUSCULAR HEMOGLOBIN 28.3 pg (25.0-35.0); MEAN PLATELET VOLUME 11.9 fl (7.0-11.0); MONO % 11.6 % (1.0-6.0); RBC 4.67 10^6/uL (3.5-6.1)
[2017-03-06 17:26] LABS: ALB/GLOB RATIO 1.3 (1.1-1.8); ALBUMIN 4.4 g/dL (3.0-4.8); CALCIUM 9.9 mg/dL (8.4-10.5)
[2017-03-06 17:32] LABS: TROPONIN I 0.02 ng/mL
[2017-03-06 17:57] VITALS: RESP 18
[2017-03-06 17:58] LABS: INR 1.14 (0.93-1.08)
[2017-03-06] MEDS ORDERED: Potassium Chloride 20 mEq ER Tab PO STA (18:26)
[2017-03-06] MEDS ORDERED: Lactated Ringer's 1,000 ML IV SCH (18:30)
[2017-03-06 19:42] VITALS: BP 142/83; PULSE 73; O2SAT 99
--- NOTE | 2017-03-07 10:46 | CARD ---
APPROVED REPORT EKG Measurement Heart [id number] <Conclusion> Sinus tachycardia LVH NSSTW changes Mildly prolonged QTc, new
== END 2017-03-06 20:00 | disposition left against medical advice (07) ==
LOC: ED 16:22
DX: R07.9 Chest pain, unspecified (principal); R20.0 Anesthesia of skin; I10 Essential (primary) hypertension; F17.210 Nicotine dependence, cigarettes, uncomplicated

== ENCOUNTER 2017-04-16 11:13 | Emergency (ER) | payer OTHER ==
[2017-04-16 11:13] VITALS: BMI 23.0
[2017-04-16] MEDS ORDERED: Sodium Chloride 0.9% 1,000 ML IV SCH (11:30)
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
[2017-04-16 13:19] LABS: BARBITURATES, UR NEGATIVE (NEGATIVE); BENZODIAZEPINES, UR NEGATIVE (NEGATIVE); OPIATES, UR NEGATIVE (NEGATIVE); PHENCYCLIDINE, UR NEGATIVE (NEGATIVE)
[2017-04-16 13:48] LABS: BASO # 0.02 K/mm3 (0.0-2.0); BASO % 0.2 % (0.0-3.0); GRAN # 11.01 (1.4-6.5); GRAN % 87.9 % (50.0-68.0); HEMOGLOBIN 13.8 g/dL (14.0-18.0); LYMPH # 0.7 (1.2-3.4); LYMPH % 5.9 % (22.0-35.0); MEAN CELL VOLUME 85.4 fl (80.0-105.0); MEAN CORPUSCULAR HEMOGLOBIN 28.3 pg (25.0-35.0); MEAN CORPUSCULAR HGB CONC 33.2 g/dl (31.0-37.0); MONO # 0.8 (0.1-0.6); RBC 4.87 10^6/uL (3.5-6.1); RED CELL DISTRIBUTION WIDTH 14.4 % (11.5-14.5); WHITE BLOOD COUNT 12.5 10^3/ul (4.5-11.0)
[2017-04-16 13:56] VITALS: RESP 18
[2017-04-16 14:00] LABS: ALB/GLOB RATIO 1.2 (1.1-1.8); ALBUMIN 4.4 g/dL (3.0-4.8); BILIRUBIN,DIRECT 0.3 mg/dL (0.0-0.4)
[2017-04-16 14:07] LABS: URINE BILIRUBIN NEGATIVE (NEGATIVE); URINE BLOOD NEGATIVE (NEGATIVE); URINE GLUCOSE (UA) NEGATIVE (NEGATIVE); URINE LEUKOCYTE ESTERASE NEGATIVE Leu/uL (NEGATIVE); URINE NITRATE NEGATIVE (NEGATIVE); URINE PROTEIN 100 mg/dL (<30 mg/dL); URINE UROBILINOGEN 0.2 E.U./dL (<1 E.U./dL)
[2017-04-16 14:07] LABS: ACETAMINOPHEN < 10.0 ug/ml (10.0-20.0); SALICYLATE 2 mg/dL (2.0-20.0)
[2017-04-16 14:10] LABS: URINE APPEARANCE CLEAR (CLEAR); URINE COLOR YELLOW (YELLOW)
[2017-04-16 14:22] LABS: URINE BACTERIA TRACE (NEG); URINE CALCIUM OXALATE CRYSTALS FEW /hpf; URINE EPITHELIAL CELLS 0 - 2 /hpf (0-5); URINE RBC 0 - 2 /hpf (0-2); URINE WBC 0 - 2 /hpf (0-6)
[2017-04-16 15:08] VITALS: BP 159/98; PULSE 91; O2SAT 98
--- NOTE | 2017-04-17 09:36 | CARD ---
APPROVED REPORT EKG Measurement Heart [id number] [id number] <Conclusion> Sinus tachycardia Voltage criteria for left ventricular hypertrophy Nonspecific ST and T wave abnormality Abnormal ECG
== END 2017-04-16 15:11 | disposition home or self-care (01) ==
LOC: ED 11:13
DX: T65.891A Toxic effect of other specified substances, accidental (unintentional), initial encounter (principal); E86.0 Dehydration; F19.10 Other psychoactive substance abuse, uncomplicated; F17.210 Nicotine dependence, cigarettes, uncomplicated; I10 Essential (primary) hypertension
CPT/HCPCS: 80076; 80320; 80324; 80329; 80345; 80346; 80349; 80353; 80358; 80361; 81001; 83690; 83992; 85025; 93005; 96374; 96375; 99284; J2405; J2765; J7040

== ENCOUNTER 2018-02-25 19:50 | Emergency (ER) | payer OTHER ==
[2018-02-25 20:08] VITALS: BMI 27.2
[2018-02-25 20:12] VITALS: BP 163/104; PULSE 90; RESP 18; TEMP 98.7; O2SAT 97
== END 2018-02-25 21:53 | disposition left against medical advice (07) ==
LOC: ED 19:50
DX: Z02.89 Encounter for other administrative examinations (principal); M25.569 Pain in unspecified knee